=== PATIENT | female | born 1985 | race African-American/Black ===

== ENCOUNTER 2018-08-10 09:36 | Emergency (ER) | payer OTHER, MEDICAID ==
[~2018-08-10] VITALS: Ht 162.6 cm; Wt 104.3 kg
[~2018-08-10 09:36] MED LIST: AMOXICILLIN 50500 MG PO; NABUMETONE 750750 M1 PO; NAPROXEN SODIU220 M2 PO; NEXPLANON68 MG SQ; NORCO 5-325 TA1 EAC1 PO; ROBAXIN 750 MG750 M1 PO
[2018-08-10] MEDS ORDERED: CLARITIN10 MG PO (10:25)
[2018-08-10] MEDS ORDERED: PROAIR HFA8.5 GM INH (10:25)
[2018-08-10] MEDS ORDERED: MEDROLDOSEPACK PO (10:25)
[2018-08-10 10:52] VITALS: BP 138/86
== END 2018-08-10 10:52 | disposition home or self-care (01) ==
LOC: M.ERS 09:36
DX: J30.2 Other seasonal allergic rhinitis (principal); T78.40XA Allergy, unspecified, initial encounter; X58.XXXA Exposure to other specified factors, initial encounter

== ENCOUNTER 2019-11-10 12:11 | Emergency (ER) | payer OTHER ==
[~2019-11-10] VITALS: Ht 162.6 cm; Wt 104.3 kg
[~2019-11-10 12:11] MED LIST changes: +CLARITIN10 MG PO; +MEDROLDOSEPACK PO; +PROAIR HFA8.5 GM INH
[2019-11-10 12:30] LABS: URINE BILIRUBIN NEGATIVE (Negative); URINE BLOOD NEGATIVE (Negative); URINE CLARITY CLEAR; URINE COLOR YELLOW; URINE GLUCOSE-RANDOM NEGATIVE (Negative); URINE KETONES NEGATIVE (Negative); URINE LEUKOCYTES-REFLEX NEGATIVE (Negative); URINE NITRITE-REFLEX NEGATIVE (Negative); URINE PROTEIN NEGATIVE (Negative); URINE SPECIFIC GRAVITY 1.025 (1.005-1.030); URINE UROBILINOGEN 0.2 E.U./dl (0.2-1.0)
[2019-11-10] MEDS ORDERED: DIFLUCAN150 M1 PO (12:54)
[2019-11-10 13:00] VITALS: BP 169/89
== END 2019-11-10 13:00 | disposition home or self-care (01) ==
LOC: M.ERS 12:11
PROVIDERS: Nurse Practitioner Family
DX: B37.3 Candidiasis of vulva and vagina (principal)

== ENCOUNTER 2020-11-20 22:52 | Emergency (ER) | payer BC ==
[~2020-11-20] VITALS: Ht 162.6 cm; Wt 97.5 kg
[~2020-11-20 22:52] MED LIST changes: +DIFLUCAN150 M1 PO
[2020-11-21 01:26] LABS: ABSOLUTE BASOPHILS 0.1 thou/uL (0.0-0.2); ABSOLUTE EOSINOPHILS 0.3 thou/uL (0.0-0.7); ABSOLUTE MONOCYTES 0.4 thou/uL (0.0-1.2); ABSOLUTE NEUTROPHILS 4.1 thou/uL (1.6-8.1); EOSINOPHILS 3.4 %; HEMATOCRIT 38.3 % (37.0-47.0); LYMPHOCYTES 38.2 %; MCH 29.5 pg (26.0-34.0); MCV 86.9 fL (80.0-100.0); MONOCYTES 5.2 %; MPV 6.5 fl. (7.2-11.1); NUCLEATED RBCS 0 /100WBC; PLATELET COUNT* 351 thou/uL (150-400); POLYS 52.2 %; RBC 4.41 mil/uL (4.20-5.00); WBC 7.9 thou/uL (4.0-11.0)
[2020-11-21 01:37] LABS: CALCIUM 8.6 mg/dL (8.5-10.1); CREATININE 0.9 mg/dL (0.6-1.3); POTASSIUM 3.6 mmol/L (3.5-5.1)
[2020-11-21 01:41] LABS: ALBUMIN 3.1 g/dL (3.4-5.0); TOTAL BILIRUBIN 0.2 mg/dL (<0.1-1.0); TOTAL PROTEIN 7.5 g/dL (6.4-8.2)
[2020-11-21 01:51] LABS: URINE BILIRUBIN NEGATIVE (Negative); URINE BLOOD NEGATIVE (Negative); URINE CLARITY CLEAR; URINE COLOR YELLOW; URINE GLUCOSE-RANDOM NEGATIVE (Negative); URINE KETONES TRACE (Negative); URINE LEUKOCYTES-REFLEX NEGATIVE (Negative); URINE NITRITE-REFLEX NEGATIVE (Negative); URINE PROTEIN NEGATIVE (Negative); URINE SPECIFIC GRAVITY 1.025 (1.005-1.030); URINE UROBILINOGEN 0.2 E.U./dl (0.2-1.0)
[2020-11-21 02:05] LABS: AMP/METHAMP Negative (Negative); BARBITURATES Negative (Negative); BENZODIAZEPINES Negative (Negative); COCAINE Negative (Negative); METHADONE Negative (Negative); OPIATES Negative (Negative); PCP Negative (Negative); THC Negative (Negative)
[2020-11-21] MEDS ORDERED: CIPRO HC OTIC S10 ML OTIC (03:20)
[2020-11-21] MEDS ORDERED: DOXYCYCLINE 10100 MG PO (03:20)
[2020-11-21] MEDS ORDERED: PERCOCET 7.5-31 EAC1 PO (03:20)
[2020-11-21 04:01] VITALS: BP 116/74
== END 2020-11-21 04:02 | disposition home or self-care (01) ==
LOC: M.ERS 22:52
PROVIDERS: Emergency Medicine
DX: R10.84 Generalized abdominal pain (principal); H92.01 Otalgia, right ear; Z79.899 Other long term (current) drug therapy